=== PATIENT | male | born 1985 | race Caucasian/White ===

== ENCOUNTER 2016-09-10 22:31 | Emergency (ER) | payer MEDICAID ==
--- NOTE | 2016-09-10 22:50 | CPEKG ---
Heart Rate: 72 RR Interval: 833 P-R Interval: 176 QRSD Interval: 96 QT Interval: 380 QTC Interval: 416 P [place]: 60 QRS [place]: 56 T Wave [place]: 40 EKG Severity - NORMAL ECG - EKG Impression: SINUS RHYTHM Electronically Signed By: Felipe Olivas 11-Sep-2016 05:45:42
[2016-09-10 23:01] VITALS: TEMP 98.1
--- NOTE | 2016-09-10 23:04 | EDPHY ---
H & P Stated Complaint: chest pain, bilateral arm pain, blood clot last yesr + stent Time Seen by Provider: 09/10/16 22:50 HPI/ROS: Chief complaint: Chest pain HPI: Patient is presenting complaining of substernal chest discomfort in the evenings over the last 3 nights. States usually comes on about 7 o'clock in the evening and last until he goes to bed. Occasionally has some at a.m. overnight as well. Occasionally has right arm hurts, sometimes left arm hurts. It is gone by morning. At its worst is a 4/10. He did take 2 aspirin earlier. Right now he is no pain. No shortness of breath fever. No fevers or chills. There is no exertional pain. Does not have family history of coronary artery disease. Does have a history of a PE in 2014 after having a DVT. 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 He did have his iliac vein stented. He was anticoagulated for 6 months. He is currently not taking any medications. No leg swelling or pain. Pain is not pleuritic. No risk factors for PE. ROS: 10 point Review of Systems is negative except as noted in the HPI. 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 External auditory canals are clear. Nose: no rhinorrhea Eyes: PERRLA, EOMI Mouth: Moist mucosa Neck: Supple, no JVD Chest: nontender, lungs clear to auscultation Heart: S1, S2 normal, no murmur Abd: Soft, non-tender, no guarding Back: no CVA tenderness, no midline tenderness Ext: no edema, non-tender Skin: no rash Neuro: CN II-XII intact, Sensation grossly intact, Strength 5/5 in bilateral upper and lower extremities - Personal History Current Tetanus Diphtheria and Acellular Pertussis (TDAP): Yes - Medical/Surgical History Hx Asthma: No Hx Chronic Respiratory Disease: No Hx Diabetes: No Hx Cardiac Disease: No Hx Renal Disease: No Hx Cirrhosis: No Hx Alcoholism: No Hx HIV/AIDS: No Hx Splenectomy or Spleen Trauma: No Other PMH: blood clot, stent palcemnt 2016 - Social History Smoking Status: Current some day smoker Constitutional: Initial Vital Signs Temperature (C) 36.7 C 09/10/16 22:34 Heart Rate 77 09/10/16 22:34 Respiratory Rate 20 09/10/16 22:34 Blood Pressure 135/85 H 09/10/16 22:34 O2 Sat (%) 100 09/10/16 22:34 O2 Delivery Mode Room Air Allergies/Adverse Reactions: Penicillins Allergy (Verified 09/10/16 22:34) Home Medications: Medication Instructions Recorded NK [No Known Home Meds] 09/10/16 Medical Decision Making - Diagnostics EKG Interpretation: 2247 sinus rhythm with a rate of 72, normal axis, normal intervals, no acute ST or T-wave changes. Impression: Normal ECG. ED Course/Re-evaluation: ECG is normal. Troponin is normal. 31-year-old with no risk factors for coronary disease presenting with some discomfort in his chest started at 7 o' clock. He is pain-free here. Symptoms more consistent with probable gastrointestinal causes opposed to heart or lung. Patient has a history PE but he has May-Thurner syndrome and this has been treated with a stent. He has not have any symptoms suggestive of DVT or PE at this time. He is otherwise well- appearing. Will discharge with follow-up with the primary care physician as an outpatient. - Data Points Laboratory Results: Laboratory Results 09/10/16 22:47 09/10/16 22:47 Sodium 137 mEq/L mEq/L (134-144) Potassium 4.1 mEq/L mEq/L (3.5-5.2) Chloride 102 mEq/L mEq/L (97-110) Carbon Dioxide 24 mEq/l mEq/l (22-31) Anion Gap 11 mEq/L mEq/L (8-16) BUN 15 mg/dL mg/dL (7-23) Creatinine 0.9 mg/dL mg/dL (0.7-1.3) Estimated GFR > 60 Glucose 91 mg/dL mg/dL (70-100) Calcium 9.7 mg/dL mg/dL (8.5-10.4) Troponin I < 0.012 ng/mL ng/mL (0-0.034) Departure - Departure Disposition: Home, Routine, Self-Care Clinical Impression: Chest pain Condition: Good Instructions: Chest Pain (ED) Additional Instructions: Return to the emergency department for increasing pain, shortness of breath, fevers, chills, worsening cough, or any other concerns. Follow up with primary care physician for further evaluation. You may try an [id number] antacid medication such as Zantac to see if this helps you with your pain. Referrals: NONE *PRIMARY CARE P,. [Primary Care Provider] - As per Instructions Cullen Nagel DO [Doctor of Osteopathy] - As per Instructions
[2016-09-10 23:31] LABS: ANION GAP 11 mEq/L (8-16); CALCIUM 9.7 mg/dL (8.5-10.4); CARBON DIOXIDE 24 mEq/l (22-31); CHLORIDE 102 mEq/L (97-110); CREATININE 0.9 mg/dL (0.7-1.3); GLOMERULAR FILTRATION RATE > 60; GLUCOSE 91 mg/dL (70-100); POTASSIUM 4.1 mEq/L (3.5-5.2); SODIUM 137 mEq/L (134-144)
[2016-09-10 23:43] LABS: TROPONIN I < 0.012 ng/mL (0-0.034)
[2016-09-11 00:04] VITALS: BP 115/72; PULSE 67; RESP 18; O2SAT 97
== END 2016-09-11 00:04 | disposition home or self-care (01) ==
DX: R07.9 Chest pain, unspecified (principal); F17.200 Nicotine dependence, unspecified, uncomplicated; Z98.61 Coronary angioplasty status

== ENCOUNTER → 2016-12-16 | Outpatient (CLI) | payer MEDICAID | LOC: FIMAGING 10:39 | PROVIDERS: ATTEND Internal Medicine | DX: N50.3 Cyst of epididymis (principal); N50.89 Other specified disorders of the male genital organs; R59.1 Generalized enlarged lymph nodes; B34.9 Viral infection, unspecified ==

== ENCOUNTER 2017-06-10 13:42 | Emergency (ER) | payer MEDICAID ==
[2017-06-10 13:47] VITALS: RESP 16; TEMP 98.6
--- NOTE | 2017-06-10 15:10 | EDPHY ---
H & P Stated Complaint: L foot pain--stepped wrong this am Time Seen by Provider: 06/10/17 15:08 HPI/ROS: CHIEF COMPLAINT: Left foot pain HISTORY OF PRESENT ILLNESS: The patient presents the ED with complaints of acute left foot pain. The patient inverted his foot while walking. He reports moderate pain with ambulation. He denies associated numbness or weakness. The patient does have a prior history of a DVT in the leg which was treated with a stent of his iliac vein. He is not anticoagulated. The patient denies additional injury. REVIEW OF SYSTEMS: A comprehensive 10 point review of systems is otherwise negative aside from elements mentioned in the history of present illness. Source: Patient Exam Limitations: No limitations - Personal History Current Tetanus/Diphtheria Vaccine: Unsure Current Tetanus Diphtheria and Acellular Pertussis (TDAP): Unsure - Medical/Surgical History Hx Asthma: No Hx Chronic Respiratory Disease: No Hx Diabetes: No Hx Cardiac Disease: No Hx Renal Disease: No Hx Cirrhosis: No Hx Alcoholism: No Hx HIV/AIDS: No Hx Splenectomy or Spleen Trauma: No Other PMH: dvt/pe. filter placed 2015 - Social History Smoking Status: Current some day smoker - Physical Exam Exam: General appearance: alert no distress Left ankle: There is swelling and tenderness over the left 5th metatarsal head. Ankle joint is stable and there is no tenderness over the Achilles tendon. Neurologic exam: The patient has normal sensation and motor function distal to the injury. Vascular exam: Normal pulses and capillary refill in the foot DIFFERENTIAL DIAGNOSIS: After history and physical exam differential diagnosis was considered for ankle injury including sprain, fracture, dislocation and soft tissue injury. Constitutional: Initial Vital Signs Temperature (C) 37.0 C 06/10/17 13:44 Heart Rate 84 06/10/17 13:44 Respiratory Rate 16 06/10/17 13:44 O2 Sat (%) 98 06/10/17 13:44 O2 Delivery Mode Room Air Allergies/Adverse Reactions: Penicillins Allergy (Verified 09/10/16 22:34) Home Medications: Medication Instructions Recorded NK [No Known Home Meds] 09/10/16 Medical Decision Making - Diagnostics Imaging Results: Imaging Impressions Foot X-Ray 06/10/17 13:47 Impression: Peroneal brevis, fifth metatarsal avulsion fracture. ED Course/Re-evaluation: The patient was taken for an x-ray which demonstrates a very superficial avulsion type fracture to the 5th metatarsal head. The patient has been placed in a Nava boot. He is given crutches. The patient will be discharged home and instructed to follow up with our on-call orthopedic surgeon Dr. Morales for a recheck within the week. He will weight bear as tolerated. Departure - Departure Disposition: Home, Routine, Self-Care Clinical Impression: Metatarsal fracture Condition: Good Instructions: Foot Fracture in Adults (ED) Additional Instructions: 1. Take Ibuprofen or Motrin 600 mg by mouth three times a day. 2. Nava boot as needed for comfort. Crutches for ambulation until cleared to weightbear by Orthopedic surgery. 3. You have a small fracture in your foot which should heal without complication. I do feel recommend following up with our on-call orthopedic surgeon for evaluation within the week to ensure your fracture is healing appropriately and not moved. Referrals: Chauncey Morales MD [Medical Doctor] - As per Instructions
[2017-06-10 15:26] VITALS: BP 131/79; PULSE 80; O2SAT 92
== END 2017-06-10 15:25 | disposition home or self-care (01) ==
DX: S92.352A Displaced fracture of fifth metatarsal bone, left foot, initial encounter for closed fracture (principal); F17.200 Nicotine dependence, unspecified, uncomplicated; X58.XXXA Exposure to other specified factors, initial encounter; Y99.8 Other external cause status; Y93.01 Activity, walking, marching and hiking
CPT/HCPCS: L4386

== ENCOUNTER 2018-05-29 01:42 | Observation (INO) | payer MEDICAID ==
[2018-05-29] MEDS ORDERED: NS 1,000 ML IV ONE (01:53)
--- NOTE | 2018-05-29 01:56 | EDPHY ---
H & P Stated Complaint: DIFFICULTY TALKING AND THINKING PER PT X 20 MIN Time Seen by Provider: 05/29/18 01:54 MST HPI/ROS: HPI CHIEF COMPLAINT: Difficulty speaking. Stroke alert at triage. HISTORY OF PRESENT ILLNESS: This is a 32-year-old male who presents emergency room by private vehicle he states approximately 20-30 minutes ago he began having trouble speaking. He states he can't think of words say but he cannot get them out. He has never had this happen before. He arrives to the emergency room and a stroke alert was called immediately at triage per he was immediately brought back to ER room 1 where I evaluated him. The patient does seem to have trouble getting his words out. However this is only focal neuro deficit. He is able to move everything appropriately. Able to follow commands. When he answers my questions his speech seems slow. But is able to answer appropriately. He denies any trauma, denies headache, denies neck pain, denies chest pain, denies shortness of breath or fever. Past Medical History: History of PE/DVT. Not on any anticoagulation. History of filter. Past Surgical History: No recent surgical history. Social History: Denies drugs alcohol tobacco. Family History: Noncontributory ROS REVIEW OF SYSTEMS: 10 Systems were reviewed and negative with the exception of the elements mentioned in the history of present illness. Exam Constitutional appears well nontoxic no acute distress, triage nursing summary reviewed, vital signs reviewed, awake/alert. Eyes normal conjunctivae and sclera, EOMI, PERRLA. HENT normal inspection, atraumatic, moist mucus membranes, no epistaxis, neck supple/ no meningismus, no raccoon eyes. Respiratory clear to auscultation bilaterally, normal breath sounds, no respiratory distress, no wheezing. Cardiovascular rate normal, regular rhythm, no murmur, no edema, distal pulses normal. Gastrointestinal soft, non-tender, no rebound, no guarding, normal bowel sounds, no distension, no pulsatile mass. Genitourinary no CVA tenderness. Musculoskeletal no midline vertebral tenderness, full range of motion, no calf swelling, no tenderness of extremities, no meningismus, good pulses, neurovascularly intact. Skin pink, warm, & dry, no rash, skin atraumatic. Neurologic unremarkable neurological exam except for word-finding difficulties, no word salad, awake, alert and oriented x 3, AAOx3, moves all 4 extremities equally, motor intact, sensory intact, CN II-XII intact, normal cerebellar, normal vision, normal speech. Psychiatric normal mood/affect. Heme/Lymph/Immune no lymphadenopathy. Differential Diagnosis: Includes but is not limited to in a particular order CVA, TIA, intracranial bleed, psychosomatic, anxiety, panic attack, drug intoxication Medical Decision Making: Plan for this patient due the word finding difficulties stroke alert has been called. Will proceed with CT scan head without contrast, CT angiogram head and neck, [facility] be consult. IV establishment blood draw EKG troponin, drug screen alcohol level. Cardiac monitoring. Re-evaluate. Re-evaluation: EKG interpretation by me on record in [employer] system. Impression time of EKG 2:53 a.m., sinus rhythm rate of 73. No signs of acute ischemia. No signs of cardiac arrhythmia. I give this patient NIH stroke scale of 1. Time of NIH stroke scale 1:52 a.m.. NIH Stroke Scale/Score (NIHSS) from [email or web address] on 05/29/2018 All calculations should be rechecked by clinician prior to use RESULT SUMMARY: 1 points NIH Stroke Scale INPUTS: 1A: Level of consciousness > 0 = Alert; keenly responsive 1B: Ask month and age > 0 = Both questions right 1C: 'Blink eyes' & 'squeeze hands' > 0 = Performs both tasks 2: Horizontal extraocular movements > 0 = Normal 3: Visual carias > 0 = No visual loss 4: Facial palsy > 0 = Normal symmetry 5A: Left arm motor drift > 0 = No drift for 10 seconds 5B: Right arm motor drift > 0 = No drift for 10 seconds 6A: Left leg motor drift > 0 = No drift for 5 seconds 6B: Right leg motor drift > 0 = No drift for 5 seconds 7: Limb Ataxia > 0 = No ataxia 8: Sensation > 0 = Normal; no sensory loss 9: Language/aphasia > 1 = Mild-moderate aphasia: some obvious changes, without significant limitation 10: Dysarthria > 0 = Normal 11: Extinction/inattention > 0 = No abnormality I did speak with [facility] 2:[address] Ferro will consult. CT angiogram head and neck are negative for large vessel occlusion or dissection. Called to me by Dr. Geiger CT head without contrast negative for acute bleed or stroke called to me by Dr. Geiger.2. 2184: Dr. Ferro with [facility] has seen and evaluated the patient. Does not feel this is stroke syndrome. Would not tPA this patient. Believes this is most likely functional, versus effort dependent. Would observe. Patient be admitted overnight for observation. Observe for improvement of his speech. No tPA. Patient re-evaluated 4:13 a.m. Resting comfortably. No focal neuro deficit. Speech does seem to be improving slightly. Spoke with the hospitalist service agrees to admit for observation overnight. Dr. Luke. Source: Patient - Personal History Current Tetanus/Diphtheria Vaccine: Unsure Current Tetanus Diphtheria and Acellular Pertussis (TDAP): Unsure - Medical/Surgical History Hx Asthma: No Hx Chronic Respiratory Disease: No Hx Diabetes: No Hx Cardiac Disease: No Hx Renal Disease: No Hx Cirrhosis: No Hx Alcoholism: No Hx HIV/AIDS: No Hx Splenectomy or Spleen Trauma: No Other PMH: dvt/pe. filter placed 2016 - Social History Smoking Status: Current some day smoker Constitutional: Initial Vital Signs Temperature (C) 36.9 C 05/29/18 01:43 [facility] Heart Rate 78 05/29/18 01:43 [facility] Respiratory Rate 16 05/29/18 01:43 [facility] Blood Pressure 158/86 H 05/29/18 01:43 [facility] O2 Sat (%) 99 05/29/18 01:43 [facility] O2 Delivery Mode Room Air Allergies/Adverse Reactions: Penicillins Allergy (Verified 05/29/18 01:46 MST) Home Medications: Medication Instructions Recorded NK [No Known Home Meds] 09/10/16 Medical Decision Making - Data Points Laboratory Results: Laboratory Results 05/29/18 01:50 MST 05/29/18 01:50 MST Medications Given: Discontinued Medications Diphenhydramine HCl (Benadryl) 50 mg PO EDNOW ONE Stop: 05/29/18 04:46 Last Admin: 05/29/18 07:54 Dose: Not Given Sodium Chloride (Ns) 1,000 mls @ 0 mls/hr IV EDNOW ONE; Wide Open PRN Reason: Protocol Stop: 05/29/18 01:54 MST Last Admin: 05/29/18 02:15 Dose: 1,000 mls Point of Care Test Results: Chemistry 05/29/18 02:57 POC Sodium 143 mEq/L mEq/L (135-145) POC Potassium 3.5 mEq/L mEq/L (3.3-5.0) POC Chloride 103 mEq/L mEq/L (97-110) POC BUN 13 mg/dL mg/dL (7-23) POC Creatinine 0.9 mg/dL mg/dL (0.7-1.3) POC Glucose 86 mg/dL mg/dL (70-100) ISTAT H&H 05/29/18 02:57 POC Hgb 16.3 gm/dL gm/dL (13.7-17.5) POC Hct 48 % % (40-51) Departure - Departure Disposition: [facility] Inpatient Acute Clinical Impression: Aphasia Condition: Good
[2018-05-29] MEDS ORDERED: IOPAMIDOL (ISOVUE 370) 100 ML BTL IV ONE (02:00)
[2018-05-29 02:02] LABS: PLATELET COUNT 264 10^3/uL (150-400)
[2018-05-29 02:10] LABS: INR 0.97 (0.83-1.16); PROTIME(PATIENT) 13.1 SEC (12.0-15.0)
--- NOTE | 2018-05-29 02:36 | PDCONSULT ---
Deputy Probation Officer Note: [place] Telehealth Note Demographics Consult Type: Acute Stroke First Name: Hazel Last Name: Elijah Date of : 1985 Age: 32 Gender: Male Referring Provider: Dr Verduzco Time of initial page ([place] ): 05/29/2018 01:57 Time of return call ([place] ): 05/29/2018 01:58 Time Ready to Initiate Telemed Consult ( Time): 05/29/2018 01:59 HPI Additional History (Free Text): 32 [place] with trouble talking. He was evaluated by dr. Scanlon prior to CT scanning stroke alert was activated by nursing staff due to the nature of the complaints from the acute onset. Patient seen upon return from CT scan. He is calm lying on the bed. Cannot say when the changes started. Deneis intoxication. [facility]-- Social History: occasional THC use Exam Mental Status: awake, follows commands, psychmotor slowing, effortful speech and action Language: no aphasia, mild dysarthria c/w mental status Cranial Nerves: extra ocular movements intact, no facial droop Motor: normal strength, normal bulk, no drift Cerebellar: normal finger nose NIHSS Time (): 05/29/2018 02:16 LOC 1a: 0 = Alert; keenly responsive LOC 1b: 0 = Answers both questions correctly LOC Commands: 0 = Performs both tasks correctly Best Gaze: 0 = Normal Visual: 0 = No visual loss Facial Palsy: 0 = Normal symmetrical movements Motor Arm L: 0 = No drift; limb holds 90 (or 45) degrees for full 10 seconds Motor Arm R: 0 = No drift; limb holds 90 (or 45) degrees for full 10 seconds Motor Leg L: 0 = No drift; leg holds 30-degree position for full 5 seconds Motor Leg R: 0 = No drift; leg holds 30-degree position for full 5 seconds Limb Ataxia: 0 = Absent Sensory: 0 = Normal; no sensory loss Best Language: 0 = No aphasia; normal Dysarthria: 1 = [id number]-dkunxely dysarthria; patient slurs at least some words Extinction + Inattention: 0 = No abnormality NIHSS: [address]: no bleed CTA Head: no large vessel occlusion CTA Neck: patent vessels Assessment: Altered behavior with slowed responses and speech. Not a stroke syndrome. Perhaps an intoxication or metabolic issue. 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 Plan Lytic/Intervention: NOT IV or IA candidate Labs: Ammonia, B 12, UDS Other: I have discussed my recommendations with the referring provider Disposition: observation Logistics Telemedicine: Interactive 2 way audio and visual telecommunication technology was utilized during this visit. Provider Location: [place]
[2018-05-29] MEDS ORDERED: diphenhydrAMINE 25 MG CAP PO ONE (04:45)
[2018-05-29] MEDS ORDERED: ONDANSETRON DISINTEGRATING 4 MG TAB PO PRN (04:46)
[2018-05-29] MEDS ORDERED: ACETAMINOPHEN 325 MG TAB PO PRN (04:46)
[2018-05-29] MEDS ORDERED: ONDANSETRON 4 MG/2 ML VIAL IVP PRN (04:46)
--- NOTE | 2018-05-29 07:01 | PDGENHP ---
History and Physical - Chief Complaint Aphasia - History of Present Illness Source-patient is able to provide majority of the history he is a fair historian. On some details patient is vague in his response or states "I don't know had answer that" EMR was reviewed and case discussed with ED provider. 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 Patient also feels like he had some difficulties forming the words with his tongue but he denies any difficulty swallowing or drooling. No known facial drooping. Had patient is unable to state when he has symptoms started but may have been within an hour of his presentation. Patient also reports a history of some mild sinus headaches, mild photophobia and some hypersensitivity of his trunk. He also notes that he feels a little disoriented intermittently. Over the last several weeks patient admits that he has felt that his thinking was a little bit foggy. He denies any numbness or tingling in his distal extremities. He denies any focal deficits. Patient arrived to the ED via labor. He does not take any medications prescribed or [id number]. He reports rare use of THC and denies any illicit drugs. 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 He notes that he is mood is occasionally variable and fluctuates intermittently which he states he would consider his baseline. Currently patient reports that he is struggling with some depressive symptoms but he denies any SI or HI. He has not struggled with any ADLs. Patient denies any interruption of his sleep and typically will sleep 6-8 hours a day on average occasionally only four. History Information - Allergies/Home Medication List Allergies/Adverse Reactions: Penicillins Allergy (Verified 05/29/18 01:46 [facility]) Home Medications: NK [No Known Home Meds] 09/10/16 [Last Taken Unknown] I have personally reviewed and updated: family history, medical history, social history, surgical history - Past Medical History Additional medical history: History of DVT/PE status post IVC filter 2016 - Surgical History Additional surgical history: IVC filter as noted above. - Family History Additional family history: Denies any family history of CVA or seizures. Father -HTN. - Social History Smoking Status: Current some day smoker Review of Systems Review of Systems: ROS: 10pt was reviewed & negative except for what was stated in HPI & below Constitutional: Reports: chills (Since arrival to the ED and sugar was removed for EKG now solved that he is covered. But no fevers or chills at home.) Physical Exam Physical Exam: Selected Entries 05/29/18 03:30 Blood Pressure Automatic Method Heart Rate 74 Respiratory 16 Rate O2 Sat (%) 99 Blood Pressure 117/81 H Mean Arterial 93 Pressure (MAP) O2 Delivery Room Air Mode Temp Pulse Resp BP Pulse Ox 36.6 C 64 18 116/64 96 05/29/18 05:05 05/29/18 06:00 05/29/18 06:00 05/29/18 06:00 05/29/18 06:00 Constitutional: no apparent distress, other (NAD. Young adult gentleman is sitting up on gurney awake. Does appear fatigued. He is otherwise cooperative and pleasant.) Eyes: PERRL, anicteric sclera, EOMI, No scleral injection Ears, Nose, Mouth, Throat: moist mucous membranes, other (No nasal discharge.), No poor dentition Cardiovascular: regular rate and rhythym, no murmur, rub, or gallop, pulses symmetric bilaterally, No edema Respiratory: no respiratory distress, no rales or rhonchi, clear to auscultation , No respiratory distress Gastrointestinal: normoactive bowel sounds, soft, non-tender abdomen, No distension Genitourinary: no bladder tenderness, No carlson in urethra Skin: warm, normal color, no rashes or abrasions Neurologic: AAOx3, sensation intact bilaterally, other (Nonfocal exam. Patient moves all extremities. He does have some delayed speech regularly throughout the interview. No slurring of words appreciated.), No weakness, No facial droop Psychiatric: not anxious, not encephalopathic, thought process linear, flat affect (Good eye contact. Patient answers questions appropriately although there is occasional delay.), No anxious, No depressed, No poor insight, No poor judgement, No poor memory Lab Data & Imaging Review 05/29/18 01:50 MST 05/29/18 01:50 MST WBC 6.55 10^3/uL (3.80-9.50) 05/29/18 01:50 MST RBC 5.31 10^6/uL (4.40-6.38) 05/29/18 01:50 MST Hgb 14.8 g/dL (13.7-17.5) 05/29/18 01:50 MST POC Hgb 16.3 gm/dL (13.7-17.5) 05/29/18 02:57 Hct 45.0 % (40.0-51.0) 05/29/18 01:50 MST POC Hct 48 % (40-51) 05/29/18 02:57 MCV 84.7 fL (81.5-99.8) 05/29/18 01:50 MST MCH 27.9 pg (27.9-34.1) 05/29/18 01:50 MST MCHC 32.9 g/dL (32.4-36.7) 05/29/18 01:50 MST RDW 13.2 % (11.5-15.2) 05/29/18 01:50 MST Plt Count 264 10^3/uL (150-400) 05/29/18 01:50 MST MPV 9.3 fL (8.7-11.7) 05/29/18 01:50 MST Neut % (Auto) 41.9 % (39.3-74.2) 05/29/18 01:50 MST Lymph % (Auto) 46.0 % (15.0-45.0) H 05/29/18 01:50 MST Bath % (Auto) 8.5 % (4.5-13.0) 05/29/18 01:50 MST Eos % (Auto) 2.3 % (0.6-7.6) 05/29/18 01:50 MST Baso % (Auto) 1.1 % (0.3-1.7) 05/29/18 01:50 MST Nucleat RBC Rel Count 0.0 % (0.0-0.2) 05/29/18 01:50 MST Absolute Neuts (auto) 2.75 10^3/uL (1.70-6.50) 05/29/18 01:50 MST Absolute Lymphs (auto) 3.01 10^3/uL (1.00-3.00) H 05/29/18 01:50 MST Absolute Monos (auto) 0.56 10^3/uL (0.30-0.80) 05/29/18 01:50 MST Absolute Eos (auto) 0.15 10^3/uL (0.03-0.40) 05/29/18 01:50 MST Absolute Basos (auto) 0.07 10^3/uL (0.02-0.10) 05/29/18 01:50 MST Absolute Nucleated RBC 0.00 10^3/uL (0-0.01) 05/29/18 01:50 MST Immature Gran % 0.2 % (0.0-1.1) 05/29/18 01:50 MST Immature Gran # 0.01 10^3/uL (0.00-0.10) 05/29/18 01:50 MST PT 13.1 SEC (12.0-15.0) 05/29/18 01:50 MST INR 0.97 (0.83-1.16) 05/29/18 01:50 MST APTT 24.6 SEC (23.0-38.0) 05/29/18 01:50 MST POC Sodium 143 mEq/L (135-145) 05/29/18 02:57 Sodium 141 mEq/L (135-145) 05/29/18 01:50 MST POC Potassium 3.5 mEq/L (3.3-5.0) 05/29/18 02:57 Potassium 3.9 mEq/L (3.3-5.0) 05/29/18 01:50 MST POC Chloride 103 mEq/L (97-110) 05/29/18 02:57 Chloride 105 mEq/L (97-110) 05/29/18 01:50 MST Carbon Dioxide 27 mEq/l (22-31) 05/29/18 01:50 MST Anion Gap 9 mEq/L (6-14) 05/29/18 01:50 MST POC BUN 13 mg/dL (7-23) 05/29/18 02:57 BUN 14 mg/dL (7-23) 05/29/18 01:50 MST Creatinine 0.9 mg/dL (0.7-1.3) 05/29/18 01:50 MST POC Creatinine 0.9 mg/dL (0.7-1.3) 05/29/18 02:57 Estimated GFR > 60 05/29/18 01:50 MST Glucose 86 mg/dL (70-100) 05/29/18 01:50 MST POC Glucose 86 mg/dL (70-100) 05/29/18 02:57 Calcium 9.7 mg/dL (8.5-10.4) 05/29/18 01:50 MST Magnesium 2.1 mg/dL (1.6-2.3) 05/29/18 01:50 MST Total Bilirubin 0.6 mg/dL (0.1-1.4) 05/29/18 01:50 MST Conjugated Bilirubin 0.2 mg/dL (0.0-0.5) 05/29/18 01:50 MST Unconjugated Bilirubin 0.4 mg/dL (0.0-1.1) 05/29/18 01:50 MST AST 23 IU/L (17-59) 05/29/18 01:50 MST ALT 33 IU/L (21-72) 05/29/18 01:50 MST Alkaline Phosphatase 41 IU/L (38-126) 05/29/18 01:50 MST Total Protein 7.7 g/dL (6.3-8.2) 05/29/18 01:50 MST Albumin 4.3 g/dL (3.5-5.0) 05/29/18 01:50 MST Lipase 104 IU/L (23-300) 05/29/18 01:50 MST Urine Opiates Screen NEGATIVE (NEGATIVE) 05/29/18 03:25 Urine Barbiturates NEGATIVE (NEGATIVE) 05/29/18 03:25 Ur Phencyclidine Scrn NEGATIVE (NEGATIVE) 05/29/18 03:25 Ur Amphetamine Screen NEGATIVE (NEGATIVE) 05/29/18 03:25 U Benzodiazepines Scrn NEGATIVE (NEGATIVE) 05/29/18 03:25 Urine Cocaine Screen NEGATIVE (NEGATIVE) 05/29/18 03:25 U Marijuana (THC) Screen NEGATIVE (NEGATIVE) 05/29/18 03:25 Ethyl Alcohol < 10 mg/dL (0-10) 05/29/18 01:50 MST Imaging Review: Chest x-ray-image reviewed myself report is still pending. Clear without any consolidations. Slightly hyperexpansion of the lungs. CT head, CTA head and neck-negative for any acute findings. Preliminary Radiology report reviewed. Final report is still pending. EKG additional interpertation: NSR in the [address] changes. QTC is 447. Assessment & Plan Assessment: Pleasant 32-year-old gentleman with a past medical history significant for DVT PE status post IVC filter in 2016, peep tobacco and THC rare use who presents emergency department today with complaints of aphasia. Aphasia - patient was called as a stroke alert stat CT head CTA head and neck were obtained and patient also had evaluation by [facility]. He is not a candidate for tPA. Initial impression from neurology is that this could be symptoms of metabolic, infectious or functional neurologic issues. Patient's laboratory studies appear to be within normal limits. He does not appear dehydrated. His renal function is appropriate. There is no evidence of infectious process. Patient does admit to intermittent headaches and has been experiencing some photophobia so this could represent a complex migraine. Additionally patient does note he has had some fluctuations in his mood occasionally with more depressed mood type symptoms which he reports he is experiencing currently. 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 No SI or HI. At this time patient's symptoms appear to be improving but still remains symptomatic. Neurology recommended monitoring until his symptoms resolved. If patient's symptoms continue to per persist consider inpatient neurology eval. Will continue to monitor patient on cardiac monitors. History of DVT PE status post IVC filter-on anticipate short hospital stay will encourage mobilization as patient had any gait issues. If patient should stay additional day consider initiation of anticoagulation but anticipate that he was shell discharge later today assuming his symptoms continue to resolve completely. FEN - oral hydration. Electrolytes adequate did not require replacement. Saline lock IV. PPX-SCDs as noted above. Anticoagulation tomorrow if patient stays additional day. Patient reports IVC filter remains in place. Otherwise encourage ambulation and anticipate short hospital stay. Cor status -full Disposition-patient admitted to observation status on med surge floor for additional monitoring of his current symptoms.
[2018-05-29 08:08] VITALS: BP 138/62
--- NOTE | 2018-05-29 11:27 | PDDCSUM ---
Discharge Summary Discharge Summary: Date of Admission: 05/29/2018 Date of Discharge: 05/29/2018 Consults: Neurology Procedures: CT Head, CTA Head/Neck Hospital Course Problem List: Aphasia - Patient admitted with acute onset of aphasia. Patient was called as a stroke alert stat CT head CTA head and neck were obtained and patient also had evaluation by [facility]. Initial impression from neurology is that this could be symptoms of metabolic, infectious or functional neurologic issues. Patient's laboratory studies appear to be within normal limits. He does not appear dehydrated. His renal function is appropriate. There is no evidence of infectious process. Patient does admit to intermittent headaches and has been experiencing some photophobia so this could represent a complex migraine. Additionally patient does note he has had some fluctuations in his mood occasionally with more depressed mood type symptoms which he reports he is experiencing currently. 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 No SI or HI. At time of discharge, patient's symptoms were significantly improved. History of DVT PE status post IVC filter-No AC indicated due to short hospital stay. Time spent on discharge was >35 minutes with >50% of time spent on patient education and counseling.
--- NOTE | 2018-05-31 05:48 | CPEKG ---
Test Reason : OPEN Blood Pressure : / mmHG Vent. Rate : 073 BPM Atrial Rate : 074 BPM P-R Int : 185 ms QRS Dur : 095 ms QT Int : 405 ms P-R-T Axes : 061 046 025 degrees QTc Int : 447 ms Sinus rhythm Confirmed by Jose Verduzco ([id number]) on 05/31/2018 5:47:38 AM Referred By: Confirmed By:Jose Verduzco
== END 2018-05-29 11:30 | disposition home or self-care (01) ==
LOC: F2N 05:03
PROVIDERS: ADMIT Family Medicine; ATTEND Internal Medicine
DX: R47.01 Aphasia (principal); R47.89 Other speech disturbances; R41.0 Disorientation, unspecified; E86.9 Volume depletion, unspecified; R29.701 NIHSS score 1; F17.200 Nicotine dependence, unspecified, uncomplicated; Z86.711 Personal history of pulmonary embolism; Z86.718 Personal history of other venous thrombosis and embolism; Z88.0 Allergy status to penicillin
CPT/HCPCS: 70450; 70496; 70498; 71045; 93005; 99285; G0378; 80305; 82435-PO; 82565-PO; 82947-PO; 84132-PO; 84295-PO; 84520-PO; 85014-PO; G0480; Q9967